=== PATIENT | female | born 1960 | race Hispanic/Latino ===

== ENCOUNTER → 2022-10-03 | Outpatient (CLI) | payer OTHER | LOC: EDSEX 11:00 → DX 11:41 | PROVIDERS: ATTEND Internal Medicine Gastroenterology | DX: Z12.11 Encounter for screening for malignant neoplasm of colon (principal); I10 Essential (primary) hypertension; K30 Functional dyspepsia; R13.10 Dysphagia, unspecified; Z78.9 Other specified health status; Z68.22 Body mass index [BMI] 22.0-22.9, adult | CPT/HCPCS: 74220 ==

== ENCOUNTER → 2022-12-04 | Day surgery (SDC) | payer OTHER ==
[~2022-12-04] MED LIST: ASPIRIN81 MG PO; FENTANYL CITRATE/PF 100MCG/2 ML INJ ONE; JARDIANCE25 MG PO; LACTATED RINGER'S 1,000 ML ONE; LOSARTAN POTASS25 MG PO; METFORMIN HCL500 MG PO; MIDAZOLAM HCL 2 MG/2 ML VIAL ONE; OR PHACO EYE KIT ONE; PREOP PHACO EYE KIT ONE; SIMVASTATIN20 MG PO; TRULICITY3 MG/0.5 M SC; VITAMIN D250 MCG PO
[2022-12-04 09:20] VITALS: BP 141/77
== END | disposition home or self-care (01) ==
LOC: OR 06:50
PROVIDERS: ATTEND Ophthalmology
DX: H25.12 Age-related nuclear cataract, left eye (principal); Z79.84 Long term (current) use of oral hypoglycemic drugs; Z79.85 Long-term (current) use of injectable non-insulin antidiabetic drugs; Z79.82 Long term (current) use of aspirin; Z79.899 Other long term (current) drug therapy
CPT/HCPCS: 36415; 66984; 82948; J2250; J3010; J7121; V2632

== ENCOUNTER → 2023-01-01 | Day surgery (SDC) | payer OTHER ==
[~2023-01-01] MED LIST changes: -LACTATED RINGER'S 1,000 ML ONE
[2023-01-01 12:12] VITALS: BP 140/72; PULSE 93; RESP 16; O2SAT 100
== END | disposition home or self-care (01) ==
LOC: OR 07:53
PROVIDERS: ATTEND Ophthalmology
DX: H25.11 Age-related nuclear cataract, right eye (principal); G47.33 Obstructive sleep apnea (adult) (pediatric); E11.9 Type 2 diabetes mellitus without complications; I10 Essential (primary) hypertension; E78.5 Hyperlipidemia, unspecified; K76.0 Fatty (change of) liver, not elsewhere classified; Z79.82 Long term (current) use of aspirin; Z79.84 Long term (current) use of oral hypoglycemic drugs; Z79.85 Long-term (current) use of injectable non-insulin antidiabetic drugs; Z79.899 Other long term (current) drug therapy
CPT/HCPCS: 36415; 66984; 82948; J2250; V2632